=== PATIENT | female | born 2000 | race Two or more races ===

== ENCOUNTER 2023-01-28 22:22 | Emergency (ER) | payer OTHER ==
[2023-01-28 22:37] VITALS: BP 103/66; PULSE 73; RESP 18; TEMP 98.7; BMI 24.7
[2023-01-28] MEDS ORDERED: IBUPROFEN 600 MG TABLET (FP) PO ONE ×3 (23:48→23:58)
[2023-01-28] MEDS ORDERED: AZITHROMYCIN 500 MG TABLET PO ONE (23:48)
[2023-01-28] MEDS ORDERED: AZITHROMYCIN 250 MG TABLET ONE ×2 (23:54→23:58)
== END 2023-01-29 00:05 | disposition home or self-care (01) ==
LOC: JER 22:22
DX: H73.012 Bullous myringitis, left ear (principal); H66.002 Acute suppurative otitis media without spontaneous rupture of ear drum, left ear; R09.81 Nasal congestion; H92.03 Otalgia, bilateral; Z20.822 Contact with and (suspected) exposure to COVID-19
CPT/HCPCS: 0241U-QW; 99283-25